=== PATIENT | female | born 1990 | race Caucasian/White ===

== ENCOUNTER → 2021-11-27 | Outpatient (CLI) | payer MEDICAID ==
[~2021-11-27] MED LIST: ACHD5005 PO; AMOX500C2 PO; AZIT250T PO; AZIT250T12 PO; BENZ100C18 PO; CEFD300C3 PO; D-ME118S33 PO; FAMO-119 PO; FEXO-14 PO; FLUO90CA4 PO; IBUP-844 PO; NIFE-24 PO; NITR-65 PO; ONDA4TAB11 PO; ONDA8TAB9 PO; ONDN4T PO; PRD20T PO; PREN1TAB71 PO; PROM25TA14 PO; RT-ALBUINH IH; TRM50T PO
== END ==
LOC: CARD 09:23
PROVIDERS: ATTEND Family Medicine
DX: R00.0 Tachycardia, unspecified (principal)
CPT/HCPCS: 93306

== ENCOUNTER 2022-10-13 12:35 | Emergency (ER) | payer MEDICAID ==
[~2022-10-13] VITALS: Ht 182 cm; Wt 120.0 kg
[~2022-10-13 12:35] MED LIST changes: +ALBU8.5H6 IH; -RT-ALBUINH IH
[2022-10-13 12:52] LABS: BILIRUBIN,URINE NEGATIVE (NEGATIVE); CLARITY,URINE CLEAR; COLOR,URINE YELLOW; GLUCOSE, URINE (UA) NEGATIVE (NEGATIVE); KETONES,URINE NEGATIVE (NEGATIVE); LEUKOCYTE ESTERASE ,URINE 2+ (NEGATIVE); NITRITE,URINE NEGATIVE (NEGATIVE); PROTEIN,URINE TRACE (NEGATIVE)
[2022-10-13 12:58] LABS: BACTERIA,URINE MODERATE /HPF
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
[2022-10-13 13:08] LABS: AMPHETAMINE SCREEN, URINE NEGATIVE (NEGATIVE); BARBITURATE SCREEN URINE NEGATIVE (NEGATIVE); BENZODIAZEPINES SCREEN URINE POSITIVE (NEGATIVE); CANNABINOID SCREEN, URINE POSITIVE (NEGATIVE); COCAINE SCREEN URINE NEGATIVE (NEGATIVE); METHADONE STAT NEGATIVE (NEGATIVE); OPIATE SCREEN URINE NEGATIVE (NEGATIVE); OXYCODONE STAT NEGATIVE (NEGATIVE); PROPOXYPHENE STAT NEGATIVE (NEGATIVE); TRICYCLIC ANTIDEPRESSANTS SCRE NEGATIVE (NEGATIVE)
[2022-10-13 13:17] LABS: BASOPHILS # (AUTO) 0.1 10^3/uL (0.0-0.1); BASOPHILS % (AUTO) 0 % (0-10); EOSINOPHILS # (AUTO) 0.3 10^3/uL (0.0-0.3); EOSINOPHILS % (AUTO) 2 % (0-10); HEMATOCRIT 47 % (35-52); HEMOGLOBIN 16.4 g/dL (11.5-16.0); LYMPHOCYTES # (AUTO) 3.4 10^3/uL (1.0-4.0); LYMPHOCYTES % (AUTO) 28 % (12-44); MEAN CORPUSCULAR HEMOGLOBIN 31 pg (25-34); MEAN CORPUSCULAR HGB CONC 35 g/dL (32-36); MEAN CORPUSCULAR VOLUME 89 fL (80-99); MEAN PLATELET VOLUME 10.6 fL (9.0-12.2); MONOCYTES # (AUTO) 0.8 10^3/uL (0.0-1.0); MONOCYTES % (AUTO) 7 % (0-12); NEUTROPHILS # (AUTO) 7.6 10^3/uL (1.8-7.8); NEUTROPHILS % (AUTO) 62 % (42-75); PLATELET COUNT 221 10^3/uL (130-400); WHITE BLOOD COUNT 12.2 10^3/uL (4.3-11.0)
[2022-10-13 13:28] LABS: CHLORIDE 112 MMOL/L (98-107); POTASSIUM 4.2 MMOL/L (3.6-5.0); SODIUM 139 MMOL/L (135-145)
[2022-10-13 13:30] LABS: CALCIUM 9.1 MG/DL (8.5-10.1)
[2022-10-13 13:31] LABS: GLUCOSE 108 MG/DL (70-105); TOTAL PROTEIN 7.1 GM/DL (6.4-8.2)
[2022-10-13 13:32] LABS: CARBON DIOXIDE 19 MMOL/L (21-32)
[2022-10-13 13:33] LABS: BILIRUBIN,TOTAL 0.4 MG/DL (0.1-1.0)
[2022-10-13 13:35] LABS: ALKALINE PHOSPHATASE 67 U/L (40-136); CREATININE SERUM 0.73 MG/DL (0.60-1.30); GFR ESTIMATED 112
[2022-10-13 13:36] LABS: BUN/CREATININE RATIO 15
[2022-10-13 13:37] LABS: SALICYLATE < 5.0 MG/DL (5.0-20.0)
[2022-10-13 13:38] LABS: ALANINE AMINOTRANSFERASE 30 U/L (0-55)
[2022-10-13 13:42] LABS: ACETAMINOPHEN < 10 UG/ML (10-30)
[2022-10-13 19:28] VITALS: BP 138/92
== END 2022-10-13 19:28 | disposition home or self-care (01) ==
LOC: EDUNIT# 12:38 → ER 12:39
DX: T43.222A Poisoning by selective serotonin reuptake inhibitors, intentional self-harm, initial encounter (principal); R11.10 Vomiting, unspecified; F17.210 Nicotine dependence, cigarettes, uncomplicated
CPT/HCPCS: 80053; 80306; 81000; 82947; 84443; 84703; 85025; 87088; 93005; 93041; 99284; G0480 ×3; 36415; 80320; 80329